=== PATIENT | female | born 1945 | race Caucasian/White ===

== ENCOUNTER 2023-05-22 09:04 | Emergency (ER) | payer MEDICARE ==
[2023-05-22] MEDS ORDERED: Benzonatate 100 MG Cap ONE (10:30)
[2023-05-22] MEDS ORDERED: Azithromycin 250 MG Tab ONE (10:30)
[2023-05-22 11:05] VITALS: BP 207/91; PULSE 92
[2023-05-22 11:13] LABS: INFLUENZA A NAA NEGATIVE (NEGATIVE); INFLUENZA B NAA NEGATIVE (NEGATIVE); RESPIRATORY SYNCYTIAL VIR NAA NEGATIVE (NEGATIVE)
[2023-05-22 11:18] LABS: CORONAVIRUS COVID-19 NAA NEGATIVE (NEGATIVE)
[2023-05-22 11:38] LABS: APPEARANCE,URINE SLIGHTLY CLOUDY (CLEAR); BILIRUBIN,URINE NEGATIVE (NEGATIVE); COLOR,URINE YELLOW; GLUCOSE,URINE NEGATIVE (NEGATIVE); KETONES,URINE NEGATIVE (NEGATIVE); LEUKOCYTE ESTERASE,URINE NEGATIVE (NEGATIVE); NITRITE,URINE NEGATIVE (NEGATIVE); OCCULT BLOOD,URINE TRACE-INTACT (NEGATIVE); PH,URINE 8.5 (5.0-8.0); PROTEIN,URINE NEGATIVE (NEGATIVE); UROBILINOGEN,URINE 0.2 E.U./dL (0.2-1.0)
[2023-05-22 11:42] LABS: RBC,URINE 0-5 /HPF; SQUAMOUS EPITHELIAL CELLS,UR RARE /HPF; WBC,URINE 0-5 /HPF
== END 2023-05-22 11:50 | disposition home or self-care (01) ==
LOC: LB.ED 09:04
DX: R05.9 Cough, unspecified (principal); M54.2 Cervicalgia; R07.9 Chest pain, unspecified; M79.10 Myalgia, unspecified site; F17.210 Nicotine dependence, cigarettes, uncomplicated; Z88.1 Allergy status to other antibiotic agents
CPT/HCPCS: 0241U; 81001; 99283; A9270